=== PATIENT | male | born 1990 | race Caucasian/White ===

== ENCOUNTER 2018-01-15 12:37 | Emergency (ER) | payer OTHER ==
[2018-01-15] MEDS: ACETAMINOPHEN 325 MG TAB PO (14:07)
[2018-01-15] MEDS: ONDANSETRON (ODT) 4 MG TAB ODT (14:07)
== END 2018-01-15 15:03 | disposition home or self-care (01) ==
LOC: FTE 12:37
DX: S09.90XA Unspecified injury of head, initial encounter (principal); W22.8XXA Striking against or struck by other objects, initial encounter; Y92.9 Unspecified place or not applicable
CPT/HCPCS: 99283